=== PATIENT | female | born 1975 | race Caucasian/White ===

== ENCOUNTER 2025-06-07 19:49 | Emergency (ER) | payer BC, SELFPAY ==
[2025-06-07 19:51] VITALS: BP 139/84; PULSE 80; PULSE 81; RESP 16; TEMP 36.7; O2SAT 99; BMI 22.6
--- OUTSIDE RECORDS SUMMARY | 2025-06-07 20:31 | XMS_ITS | Encounter Summary ---
Author Organization [facility] Address [address] [place] [address] Phone Care Team Providers Care Installation Coordinator Name Role Phone Dionne Luu Primary Care Provider [phone] Encounter Details Date Type Department Care Team (Late st Contact Info) Description 12/17/2023 Telephone [facility] [address] [id number] Dionne Luu ARNP [address] [place], [place] [id number] Social History Tobacco Use Types Packs/Day Years Used Date Smoking Tobacco: Former Cigarettes Smokeless Tobacco: Never Alcohol Use Standard Drinks/Week Comments Not Currently 0 (1 standard drink = 0.6 oz pur e alcohol) Comments No Sex and Gender Information Value Date Recorded Sex Assigned at Not on file Legal Sex Female 3:59 PM PDT Gender Identity Not on file Sexual Orientation Not on file documented as of this encounter Miscellaneous Notes * Telephone Encounter - Dionne Luu ARNP - 12/20/2023 6:55 AM PST Order signed Thanks! Dionne * Telephone Encounter - Noe Self MA - 12/17/2023 3:16 PM PST My chart message regarding to redraw for TSH. Test for TSH pended to provider to sign. Michael Lewis documented in this encounter Plan of Treatment Upcoming Encounters Date Type Department Care Team (Late st Contact Info) Description 02/20/2026 8:00 AM PDT Office Visit [facility] [address] [place] [address] Dionne Luu ARNP [address] [place] [address] documented as of this encounter Results * TSH (12/20/2023 8:49 AM PST) TSH 0.96 0.45 - 5.10 uIU/ml [facility] Other 12/20/2023 8:49 AM PST 12/20/2023 12:35 PM PST Dionne LEE CHEMISTRY ORDERABLES Final R esult [facility] [address] [place] [address], documented in this encounter Visit Diagnoses Diagnosis Preventative health care- Primary Routine general medical examination at a health care facility documented in this encounter Care Teams Installation Coordinator Relationship Specialty Start Date End Date Dionne Luu ARNP [address] [place] [address] PCP - General 02/16/23 documented as of this encounter
--- OUTSIDE RECORDS SUMMARY | 2025-06-07 20:31 | XMS_ITS | Clinical Summary ---
Author Organization [facility] [facility] Address [address] [place] [address] Care Team Providers Care Autism Tutor Name Role Phone Betty Arias MD Primary Care Provider [phone] Allergies Active Allergy Reactions Criticality Noted Date Comments Oxycodone-Acetaminophen Hives 05/29/2016 Levonorgestrel-Ethinyl Estrad Rash 09/09/2015 I got lumps in my legs Bupropion Hcl Agitation/Anxiety 05/29/2016 I feel like I have pound of rocks on my head Medications venlafaxine (EFFEXOR XR) 150 MG Capsule SR 24 HR Take 300 mg by mouth at bedtime. Active aripiprazole (ABILIFY) 10 MG Tab Take 10 mg by mouth at bedtime. Active hydrocodone-acet aminophen (NORCO) 5-325 mg Tab Take 1 Tab by mouth every 6 hours as needed for pain. 40 Tab 0 06/04/2016 Active ibuprofen (MOTRIN) 600 MG Tab Take 1 Tab by mouth every 6 hours as needed for pain. 60 Tab 1 06/04/2016 Active hydrocodone-acet aminophen (NORCO) 5-325 mg Tab Take 1 Tablet by mouth every 6 hours as needed for pain. 15 Tablet 04/22/2024 Active naproxen (NAPROSYN) 500 MG Tab Take 1 Tablet by mouth twice daily with meals. 20 Tablet 04/22/2024 Active Family History Medical History Relation Name Comments Cancer Father melanoma Heart Mother Relation Name Status Comments Father Mother Social History Tobacco Use Types Packs/Day Years Used Date Smoking Tobacco: Former Cigarettes 0.1 14 0 01/04/2002 - 01/04/2016 Alcohol Use Standard Drinks/Week Comments No 0 (1 standard drink = 0.6 oz pur e alcohol) Comments No Sex and Gender Information Value Date Recorded Sex Assigned at Female 04/22/2024 2:16 PM PDT Legal Sex Female 1:39 AM PST Gender Identity Female 06/20/2020 12:46 AM PDT Sexual Orientation Not on file Last Filed Vital Signs Vital Sign Reading Time Taken Comments Blood Pressure 129/64 04/22/2024 3:24 PM PDT Pulse 99 04/22/2024 3:24 PM PDT Temperature 36.2 C (97.2 F) 04/22/2024 3:24 PM PDT Respiratory Rate 16 04/22/2024 3:24 PM PDT Oxygen Saturation 100% 04/22/2024 3:24 PM PDT Inhaled Oxygen Concentration - - Weight 53.5 kg (118 lb) 04/22/2024 2:13 PM PDT Height 149.2 cm (4' 10.75 ) 04/22/2024 2:13 PM P DT Body Mass Index 24.04 04/22/2024 2:13 PM PDT Plan of Treatment Health Maintenance Due Date Last Done Comments CT Colonography 1975 Colon Cancer Screening 1975 Colonoscopy 1975 FIT Yearly 1975 FIT-DNA 1975 FOBT 1975 Sigmoidoscopy 1975 Depression Screening 1975 SCRN: FOR HIV USPSTF ROUTINE (15-65 YEARS) 1990 [facility] SCRN: HIV-UNIVERSAL SCRN 1990 SCRN: FOR HEPATITIS C ROUTINE (18-79 Years) 1993 IMM: HEPATITIS B (1 of 3 - 19+ 3-dose series) 1994 Pap Smear 1996 Cervical Cancer Screening 2005 HPV + Pap Cotesting 2005 SCRN: FOR HYPERLIPIDEMIA (ADULT) 2015 IMM: DTAP/TDAP/TD (2 - Td or Tdap) 04/18/2024 04/18/2014 Breast Cancer Screening (Mammogram) 05/09/2024 05/09/2022 IMM: INFLUENZA (AGE > 6 MONTHS) (#1) 07/16/2025 08/02/2020, 08/02/2020, 10/10/2019, Additional history exists IMM: RSV ( patients and Patients AGE > 60 YEARS OLD) (1 - 1-dose 75+ series) 2050 SCRN: FOR BREAST CA Q1Y AGE 45-54 YEARS (DEFAULT) Discontinued 05/09/2022 IMM: HEPATITIS A Aged Out No longer e ligible based on patient's age to complete this topic IMM: MENINGOCOCCAL ACWY Aged Out No l onger eligible based on patient's age to complete this topic IMM: RSV (AGE < 20 MONTHS) Aged Out N o longer eligible based on patient's age to complete this topic Insurance [facility] [id number] [facility] [place] [id number] [id number] Advance Directives * Full Code (Latest Code Status on File) Date Activated Date Inactivated Comments 06/10/2016 11:34 AM 06/10/2016 7:20 PM Care Teams Autism Tutor Relationship Specialty Start Date End Date Betty Arias MD [address] [place] [address] PCP - General Family Medicine 09/07/15
--- OUTSIDE RECORDS SUMMARY | 2025-06-07 20:31 | XMS_ITS | Clinical Summary ---
Author Organization [facility] Address [address] [place] [address] Phone Care Team Providers Care Library Clerk Name Role Phone Dionne Luu Primary Care Provider [phone] Allergies Active Allergy Reactions Criticality Noted Date Comments Bupropion Hcl Anxiety,Adverse Drug Reaction Low 10/15/2015 I feel like I have pound of rocks on my head Crushing sensation to head Levonorgestrel-Ethiny l Estrad Rash High 09/09/2015 I got lumps in my legs Oxycodone-Acetaminoph en Hives,Rash High 11/01/2015 Medications venlafaxine XR 37.5 MG capsule (24 hour) Take 37.5 mg by mouth daily. 06/19/2021 Active atorvastatin (Lipitor) 10 MG tabIndications:H ypercholesterole loyd Take 1 tablet by mouth daily. 90 tablet 3 02/14/2025 Active Active Problems Problem Noted Date Diagnosed Date Hypercholesterolemia 06/22/2020 Other correction (current) drug therapy 9 Prediabetes 07/19/2018 Bipolar 1 disorder, mixed, full remission 2015 Generalized anxiety disorder 07/19/2014 Resolved Problems Problem Noted Date Diagnosed Date Resolved Date Visit for screening mammogram 06/20/2020 10/01/2022 Encounter for gynecological examination (general) (routine) without abnormal findings 06/20/2020 10/01/2022 Encounter for immunization 04/18/2014 1 12/01/2021 Immunizations Immunization Administration Dates Next Due COVID-19 Pfizer 30 mcg/0.3 m L Primary series: MONOVALENT VACCINE (Sands capped vial with sands-bordered label) 12+yrs 03/07/2021,02/14/2021 Hep B, unspecified 07/24/2005,10/20/2001 INFLUENZA (FLUCELVAX) QUAD P F (19+yrs) Non-state 08/02/2020,10/10/2019,08/31/2018 Influenza Unspecified (Historical) 08/02,10/10/2019,08/31/2018,2016,09/03/2016 Influenza Vaccine (Flu Clinic) 09/15/2017,2015,09/03/2015 TDAP Vaccine 05/26/2024,04/18/2014 Family History Medical History Relation Name Comments Bipolar Disorder Mother Heart Attack/CAD Mother age 49 ; was a smoker Bipolar Disorder Sister 1 Depression Sister 2 of suicide in 2018 Autism Son Relation Name Status Comments Mother Sister 1 Sister 2 Son Alive Social History Tobacco Use Types Packs/Day Years [...] on file Sexual Orientation Not on file Last Filed Vital Signs Vital Sign Reading Time Taken Comments Blood Pressure 114/74 02/14/2025 9:11 AM PDT Pulse 74 02/14/2025 9:11 AM PDT Temperature 36.3 C (97.4 F) 02/14/2025 9:11 AM PDT Respiratory Rate 16 02/14/2025 9:11 AM PDT Oxygen Saturation 98% 02/14/2025 9:11 AM PDT Inhaled Oxygen Concentration - - Weight 58.5 kg (129 lb) 02/14/2025 9:11 AM PDT Height 148 cm (4' 10.27 ) 02/14/2025 9:11 AM PDT Body Mass Index 26.71 02/14/2025 9:11 AM PDT Plan of Treatment Upcoming Encounters Date Type Department Care Team (Late st Contact Info) Description 02/20/2026 8:00 AM PDT Office Visit [facility] [address] [place] [address] [facility]ANT SENIOR MANAGER [address] [place] [address] Health Maintenance Due Date Last Done Comments CT Colonography 2020 FIT (Fecal Blood Test) 2020 FIT-DNA (Cologuard) 2020 Flex Sigmoidoscopy 2020 Influenza Vaccine (#1) 2025 , 08/02/2020, 10/10/2019, Additional history exists Colonoscopy 11/01/2025 11/01/2015 (Comp leted Outside of Organization) Colorectal Cancer Screening 11/01/2025 COVID-19 Vaccine (2023- season) 2026 03/07/2021, 02/14/2021 Postponed from 07/16/2024 (Declined) Depression Screening 02/14/2026 02/14/2025, 12/06/19 24 Hepatitis B Vaccines (3 of 3 - 19+ 3-dose series) 02/14/2026 07/24/2005, 10/20/2001 Postponed from 09/18/2005 (Declined) Mammogram 06/26/2026 06/26/2024, 04/16, 05/09/2022, Additional history exists Lipid Panel 02/14/2030 02/14/2025, 11/16, 10/02/2022, Additional history exists Pap Smear 02/14/2030 02/14/2025, 04/16 (Completed Outside of Organization) DTaP/Td/Tdap Vaccines (3 - Td or Tdap) 05/26/2034 05/26/2024, 04/18/2014 HIV Screening Completed 12/06/2023 Hepatitis C Screening Completed 12/06/2023 HPV Vaccines Aged Out No longer eligi ble based on patient's age to complete this topic Pneumococcal Vaccine Aged Out No long er eligible based on patient's age to complete this topic Procedures Procedure Name Priority Date/Time Associated Diagnosis Comments PAP SMEAR (THINPREP) Routine 02/14/2025 9:22 AM PDT Cervical cancer screening LIPID PROFILE WITH NON-HDL CHOLESTEROL, REFLEX LDL Routine 02/14/2025 9:22 AM PDT Preventative health care MG SCREENING BILATERAL MAMMOGRAM Routine 06/26/2024 8:00 AM PDT HEPATITIS C REFLEX TO HCV PCR Routine 12/06/2023 11:49 AM PST Need for hepatitis C screening test HIV 1&2 EIA AB SCRN W RFLX Routine 12/06/2023 11:49 AM PST Screening for HIV (human immunodeficiency virus) from Last 3 Months or Most Recently Relevant to Health Maintenance Results * LIPID PROFILE WITH NON-HDL CHOLESTEROL, REFLEX LDL (02/14/2025 9:22 AM PDT) CHOLESTEROL 173.0 0.0 - 200.0 mg/dL [facility] TRIGLYCERIDES 137.0 0.0 - 200.0 mg/dL [facility] HDL 56.0 >45.0 mg/dL [facility] LDL-C (calc) 90.0 0.0 - 130.0 mg/dL [facility] CHOL/HDL Ratio (calc) 3.1 0.0 - 5.0 Ratio [facility] Non HDL CHol (calc) 117.0 0.0 - 160.0 mg/dL [facility] VLDL (calc) 27.4 5.0 - 40.0 calc [facility] Other 02/14/2025 9:22 AM PDT 02/14/2025 10:48 AM PDT [facility] Final Result [facility] [address] [place] [address], * PAP SMEAR (THINPREP) (02/14/2025 9:22 AM PDT) Pap Result NILM [facility] High Risk HPV Negative [facility] Comment: CASE: [id number] PATIENT: Avis Kaplan SPECIMEN DESCRIPTION: ThinPrep Imaged Liquid Pap Test SPECIMEN SOURCE: Endocervical DATE OF LAST MENSTRUAL PERIOD: Not given PAP INTERPRETATION: NEGATIVE FOR INTRAEPITHELIAL LESION OR MALIGNANCY (NILM). SPECIMEN ADEQUACY: Satisfactory for evaluation. Endocervical/transformation zone component absent/insufficient. NOTES: ThinPrep specimen imaged successfully by automated warp dyeing tender device; field of view examination only. [ThinPrep [employer]aster [employer]o. [employer], [place], [place]] MOLECULAR RESULTS NEGATIVE for High Risk HPV. This test is FDA-approved for the Hilario Vicki 4800 platform using ThinPrep(TM) vials. This assay is a qualitative test that utilizes amplification of target DNA by Polymerase Chain Reaction (PCR) and nucleic acid hybridization for the detection of 14 HPV high risk types (16,18,31,33,35,39,45,51,52,56,58,59,66 and 68). This test is used for clinical purposes. This laboratory is regulated under the 1988 CLIA amendments as qualified to perform high-complexity clinical testing. Yuliana ASTORGA(ASCP). Electronically signed 02/15/2025 12:07 Performed at [facility], [address] [place] [address], CLIA#: [id number] [employer] Hemmer: Arias Valiente MD, PhD Tissue, cervical (Cervical) 02/14/2025 9:22 AM PDT 02/14/2025 10:48 AM PDT Narrative [facility] - 02/15/2025 5:29 PM PDT Do you want HPV 16,18 subtyping if HPV is POS? Yes [facility] ORDERABLE S Final Result [facility] [address] [place] [address], * MG SCREENING BILATERAL MAMMOGRAM (06/26/2024 8:00 AM PDT) Anatomical Region Laterality Modality Breast Bilateral Mammography Narrative 06/27/2024 9:23 PM PDT EXAM: MG SCREENING BILATERAL, 06/26/2024 8:18 AM HISTORY: 48 years Female. Screening (asymptomatic). TECHNIQUE: 3D digital tomosynthesis was performed and synthetic 2D technique was utilized. ANALYZED BY CAD: Yes. PRIOR STUDIES: Available prior imaging was reviewed. DENSITY: There are scattered areas of fibroglandular density. FINDINGS: No suspicious finding in either breast. IMPRESSION: 1. No mammographic evidence of malignancy in either breast. Assessment: ACR BI-RADS Category 1 - Negative Recommendation: 1: Routine screening mammogram of both breasts in one year. The [employer] recommends annual screening mammography beginning at age 40. There are several other recommended screening guidelines. Discuss with your healthcare provider regarding the most appropriate screening regimen for you. We thank you for trusting us with your care. Per National MQSA guidelines, a breast imaging result letter will be provided to your patient. The patient has been added into the reminder system with a targeted date for her next screening mammogram. TRA strives for timely and accurate reports. * Providers: Please call for any questions/concerns. * Patient: Please discuss clinical significance with your provider. Reported: Lyndsey Canales MD 27 Jun 2024 21:18 Electronically Signed: Lyndsey Canales MD 27 Jun 2024 21:20 Procedure Note Lyndsey Canales - 06/27/2024 EXAM: MG SCREENING BILATERAL, 06/26/2024 8:18 AM HISTORY: 48 years Female. Screening (asymptomatic). TECHNIQUE: 3D digital tomosynthesis was performed and synthetic 2Dtechnique was utilized. ANALYZED BY CAD: Yes. PRIOR STUDIES: Available prior imaging was reviewed. DENSITY: There are scattered areas of fibroglandular density. FINDINGS: No suspicious finding in either breast. IMPRESSION: 1. No mammographic evidence of malignancy in either breast. Assessment: ACR BI-RADS Category 1 - Negative Recommendation: 1: Routine screening mammogram of both breasts in one year. The [employer] recommends annual screening mammographybeginning at age 40. There are several other recommended screeningguidelines. Discuss with your healthcare provider regarding the mostappropriate screening regimen for you. We thank you for trusting us with your care. Per National MQSA guidelines, a breast imaging result letter will beprovided to your patient. The patient has been added into the reminder system with a targeted datefor her next screening mammogram. TRA strives for timely and accurate reports. * Providers: Please call for any questions/concerns. * Patient: Please discuss clinical significance with your provider. Reported: Lyndsey Canales MD 27 Jun 2024 21:18 Electronically Signed: Lyndsey Canales MD 27 Jun 2024 21:20 us [facility] - MAMMOGRAM EKTA Marlin l Result * HEPATITIS C REFLEX TO HCV PCR (12/06/2023 11:49 AM PST) HEPATITIS C ANTIBODY NON-REACTI VE NON-REACT IRVIN [facility] Comment: HCV antibody was non-reactive. There is no laboratory evidence of HCV infection. In most cases, no further action is required. However, if recent HCV exposure is suspected, a test for HCV RNA (test code 60751) is suggested. For additional information please refer to http://education.Sabesim/faq/HWD51j6 (This link is being provided for informational/ educational purposes only.) Other 12/06/2023 11:4 9 AM PST 12/06/2023 1:48 PM PST Narrative [facility] - 12/07/2023 2:26 PM PST [facility] Testing performed at: , [facility], [address] [place] [address], [address], [place], [address], Standpipe Tender: Sujit Bhatia [facility] Collection Date/Time: [id number] [facility] Results Received Date/Time: [id number] [facility] Reported Date/Time: [id number] us Dionne Lockhart [facility] CHEMISTRY ORDERABLES Final R esult [facility] [address] [place] [address], * HIV 1&2 EIA AB SCRN W RFLX (12/06/2023 11:49 AM PST) HIV AG/AB, 4TH GEN NON-REACT IRVIN NON-REACT IRVIN [facility] Comment: HIV-1 antigen and HIV-1/HIV-2 antibodies were not detected. There is no laboratory evidence of HIV infection. PLEASE NOTE: This information has been disclosed to you from records whose confidentiality may be protected by state law. If your state requires such protection, then the state law prohibits you from making any further disclosure of the information without the specific written consent of the person to whom it pertains, or as otherwise permitted by law. A general authorization for the release of medical or other information is NOT sufficient for this purpose. For additional information please refer to http://education.Sabesim/faq/CEC886 (This link is being provided for informational/ educational purposes only.) The performance of this assay has not been clinically validated in patients less than 2 years old. Other 12/06/2023 11:4 9 AM [facility] 12/06/2023 1:48 PM PST Narrative [facility] - 12/07/2023 2:26 PM [facility] Testing performed at: , [facility], [address] [place] [address] [address], [place], [address], Standpipe Tender: Sujit Bhatia [facility] Collection Date/Time: [id number] [facility] Results Received Date/Time: [id number] [facility] Reported Date/Time: [id number] Dionne Lockhart [facility] SEND OUTS Final Result [facility] [address] [place] [address], from Last 3 Months or Most Recently Relevant to Health Maintenance Insurance [employer] Care Teams Library Clerk Relationship Specialty Start Date End Date Dionne Luu ARNP [address] [address] PCP - General 02/16/23
--- OUTSIDE RECORDS SUMMARY | 2025-06-07 20:31 | XMS_ITS | Clinical Summary ---
Author Organization [facility] Address [address] [place] [address] Care Team Providers Care Medical Aides Teacher Name Role Phone Betty Arias MD Primary Care Provider Unavaila ble Allergies Active Allergy Reactions Criticality Noted Date Comments Oxycodone-Acetaminoph en Rash Medium 11/01/2015 Levonorg-Eth Estrad Triphasic Other (See Comments) 10/15/2015 Erythema nodosum Bupropion Hcl Other (See Comments) 10/15/2015 Crushing sensation to head Medications lithium 300 mg tablet Take 300 mg by mouth 2 (two) times a day. Active ferrous sulfate 325 (65 FE) MG tablet Take 325 mg by mouth daily with breakfast. Active LORazepam (ATIVAN) 0.5 MG tablet Take 0.5 mg by mouth once nightly as needed for anxiety. Active risperiDONE (RISPERDAL) 0.5 MG tablet Take 0.5 mg by mouth 2 (two) times a day. Active ALPRAZolam (XANAX) 0.25 MG tablet 06/07/2015 Active Social History Tobacco Use Types Packs/Day Years Used Date Smoking Tobacco: Former Smokeless Tobacco: Never Comments:qyut 13 years ago Alcohol Use Standard Drinks/Week Comments Yes 0 (1 standard drink = 0.6 oz pur e alcohol) wine once month Comments No Sex and Gender Information Value Date Recorded Sex Assigned at Not on file Legal Sex Female 11:44 AM PDT Gender Identity Not on file Sexual Orientation Not on file Last Filed Vital Signs Vital Sign Reading Time Taken Comments Blood Pressure 128/69 11/01/2015 9:14 AM PST Pulse 90 11/01/2015 9:14 AM PST Temperature 36.6 C (97.9 F) 11/01/2015 8:15 AM PST Respiratory Rate 16 11/01/2015 9:14 AM PST Oxygen Saturation 100% 11/01/2015 9:14 AM PST Inhaled Oxygen Concentration - - Weight 47.2 kg (104 lb) 11/01/2015 8:15 AM PST Height 149.9 cm (4' 11 ) 11/01/2015 8:15 AM PST Body Mass Index 21.01 11/01/2015 8:15 AM PST Plan of Treatment Not on file Insurance [facility] [employer] Care Teams Medical Aides Teacher Relationship Specialty Start Date End Date Betty Arias MD PCP - General Family Medicine 09/03/15
--- OUTSIDE RECORDS SUMMARY | 2025-06-07 20:31 | XMS_ITS | Encounter Summary ---
Author Organization [facility] Address [address] [place] [address] Care Team Providers Care Applied Technologist Name Role Phone Betty Arias MD Primary Care Provider Unavaila ble Reason for Referral * Surgical (Routine) - Closed Specialty Diagnoses / Procedures Referred By John jesus Referred To Contact Gastrointestinal Surgery Diagnoses Iron deficiency anemia Procedures Case Request GI/Pain: COLONOSCOPY AK COLONOSCOPY FLX DX W/COLLJ SPEC WHEN PFRMD Betty Arias MD [address], [address] [address] Phone: tel: fax: Referral ID Status Reason Start Date Expiration Date Visits Re quested Visits Authorized [id number] Closed 09/19/2015 09/19/2016 1 1 Encounter Details Date Type Department Care Team (Latest Contact Info) Description 09/19/2015 Order Movie Operator [address] [address] Betty Arias MD Iron deficiency anemia (Primary Dx) Social History Tobacco Use Types Packs/Day Years Used Date Smoking Tobacco: Never Assessed Comments Unknown Sex and Gender Information Value Date Recorded Sex Assigned at Not on file Legal Sex Female 11:44 AM PDT Gender Identity Not on file Sexual Orientation Not on file documented as of this encounter Plan of Treatment Not on file documented as of this encounter Visit Diagnoses Diagnosis Iron deficiency anemia- Primary Unspecified iron deficiency anemia documented in this encounter Care Teams Applied Technologist Relationship Specialty Start Date End Date Betty Arias MD PCP - General Family Medicine 09/03/15 documented as of this encounter
--- OUTSIDE RECORDS SUMMARY | 2025-06-07 20:31 | XMS_ITS | Encounter Summary ---
Author Organization [facility] Address [address] [place] [address] Phone Care Team Providers Care Cloth Folder Machine Name Role Phone Betty Arias MD Primary Care Provider Unavail able Dionne Luu Primary Care Provider [phone] Encounter Details Date Type Department Care Team (Late st Contact Info) Description 04/11/2022 Orders Only [facility] [address] [place] [address] Julio Hernandez, PABlancaC [address] [place] [address] Sore throat Social History Tobacco Use Types Packs/Day Years [...] as of this encounter Plan of Treatment Upcoming Encounters Date Type Department Care Team (Late st Contact Info) Description 02/20/2026 8:00 AM PDT Office Visit [facility] [address] [place], [place] [id number] Dionne Luu ARNP [address] [place], [place] [id number] documented as of this encounter Procedures Procedure Name Priority Date/Time Associated Diagnosis Comments COVID 19, FLU A&B, RSV PCR COMBO Routine 04/11/2022 8:55 AM PDT Sore throat documented in this encounter Results * (ABNORMAL) COVID 19, FLU A&B, RSV PCR COMBO (04/11/2022 8:55 AM PDT) Covid 19 PCR ([facility]) POSITIVE(A) NEGATIVE [facility] Influenzae A PCR Negative Negative [facility] Influenzae B PCR Negative Negative [facility] RSV PCR Negative Negative [facility] Other 04/11/2022 8:55 AM PDT 04/11/2022 8:56 AM PDT us Julio Hernandez PA-C POINT OF CARE TESTING Final R esult [facility] [address] [place] [address], documented in this encounter Visit Diagnoses Diagnosis Sore throat Acute pharyngitis documented in this encounter Care Teams Cloth Folder Machine Relationship Specialty Start Date End Date Betty Arias MD PCP - General Family Medicine 11/15/1909 02/15/23 Dionne Luu ARNP [address] [place] [address] PCP - General 02/16/23 documented as of this encounter
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
--- OUTSIDE RECORDS SUMMARY | 2025-06-07 20:31 | XMS_ITS | Encounter Summary ---
Author Organization [facility] Address [address] [place] [address] Care Team Providers Care Needle Process Felt Goods Supervisor Name Role Phone Betty Arias MD Primary Care Provider [phone] Encounter Details Date Type Department Care Team (Late st Contact Info) Description 02/18/2006 [facility] CONVERSION Provider, Derrick Crane Social History Tobacco Use Types Packs/Day Years Used Date Smoking Tobacco: Never Assessed Comments Unknown Sex and Gender Information Value Date Recorded Sex Assigned at Female 04/22/2024 2:16 PM PDT Legal Sex Female 1:39 AM PST Gender Identity Female 06/20/2020 12:46 AM PDT Sexual Orientation Not on file documented as of this encounter H&P Notes * Harshal Ortega - 02/18/2006 11:00 AM PDT Historical document, authenticated elsewhere. [facility] Preop History and Physical Signed Report Patient Name: DORINA KAPLAN Female Date: 1975 M.R. Number: [id number] Job Number: [id number] Admit/Service Date: 02/18/06 Status: DIS IN DATE OF ADMISSION: HISTORY OF PRESENT ILLNESS: This is a 30-year-old white female, 3, para 2, at approximately 39 weeks estimated gestational age, who was admitted to labor and delivery complaining of regular uterine contractions and spontaneous rupture of membranes. She was scheduled for elective repeat section on February 22, but states that these initial problems have occurred today and requires delivery. The nurses confirmed regular uterine contractions every 5 minutes, of increasing or escalating intensity, and the patient was noted to be both fern and Nitrazine positive. Because of this, we will proceed with section at this time. PAST MEDICAL HISTORY: Significant for a previous section for CPD. She is Rh-negative. She does have a history of admission for PID in 1991 and a cryotherapy for mild cervical dysplasia in 2004. She had 1 vaginal delivery at 41 weeks. The 2nd one was delivered at 40+ weeks by section for CPD. No other significant medical problems. SOCIAL HISTORY: No cigarettes, alcohol, or drugs. PHYSICAL EXAMINATION: VITAL SIGNS: Height 4 feet 11 inches, weight approximately 130 pounds. HEENT: Within normal limits. NECK: Supple. No thyromegaly. CHEST: Clear to auscultation. HEART: Regular rate and rhythm. ABDOMEN: Normal gravid abdomen. Bowel sounds are present. No hepatosplenomegaly. Fundal height was 38 cm. heart tones were present. EXTREMITIES: 1+ edema. NEUROLOGIC: 2+ DTRs. PELVIC: Cervix long, thick, and closed. IMPRESSION: 1. Intrauterine at term. 2. Prior section. 3. Spontaneous labor and spontaneous rupture of membranes. PLAN: Repeat low-transverse section. DICTATED BY: Caryn Rowley/sariah d: 02/18/2006 11:22:00 t: 02/18/2006 11:30:20 cc: Betty Arias M.D. <Electronically signed by HARSHAL ORTEGA MD> Electronic Authentication Status: Signed 03/08/06 0834 documented in this encounter Miscellaneous Notes * Discharge/Interim Summary - Quinn Bee - 02/18/2006 11:00 AM PDT Historical document, authenticated elsewhere. [facility] Discharge Summary Signed Report Patient Name: DORINA KAPLAN Female Date: 1975 Tita Number: [id number] Job Number: [id number] Admit/Service Date: 02/18/06 Status: DIS IN DATE OF ADMISSION: 02/18/2006 DATE OF DISCHARGE: 02/20/2006 ADMISSION DIAGNOSES: 1. Intrauterine at term. 2. Prior . 3. Desires repeat spontaneous labor and spontaneous rupture of membranes. DISCHARGE DIAGNOSES: 1. Intrauterine at term. 2. Prior . 3. Desires repeat spontaneous labor and spontaneous rupture of membranes. PROCEDURE PERFORMED: Repeat low transverse . HISTORY OF PRESENT ILLNESS: Patient is a 30-year-old G3, P2 female who admitted to the hospital for a spontaneous rupture of membranes. HOSPITAL COURSE: Patient was taken to the operating room, where she had an uneventful repeat low transverse . She had a viable female infant in vertex position, weight of 7 pounds 11 ounces. Postoperatively, the patient did well. She remained afebrile throughout her entire hospital course with all vital signs stable and normal. She had diminishing lochia. Had flatus prior to discharge. Was tolerating diet, voiding, and ambulating without any problems. Incision appeared clean, dry, and intact with no evidence of erythema. Her postoperative hematocrit was 26.8% and asymptomatic. DISCHARGE INSTRUCTIONS: She was discharged to home with ibuprofen and oxycodone. She was given return instructions to come back and see Dr. Ortega in 2 weeks and boni removed and Steri-Strips applied prior to discharge. DICTATED BY: Caryn Kumar/DONALDO d: 02/20/2006 10:19 t: 02/20/2006 16:44 <Electronically signed by QUINN BEE MD> Electronic Authentication Status: Signed 02/26/06 1113 * Operative Report/Procedure - Harshal Ortega - 02/18/2006 11:00 AM PDT Historical document, authenticated elsewhere. [facility] Operative/Procedure Report Signed Report Patient Name: DORINA KAPLAN Female Date: 1975 Stewart.Jessica Number: [id number] Job Number: [id number] Admit/Service Date: 02/18/06 Status: DIS IN DATE OF PROCEDURE: 02/18/2006 SURGEON: Harshal Ortega M.D. EAR NOSE AND THROAT SPECIALIST: Windy Acosta M.D. ANESTHESIA: Spinal, Dr. Rivera. PREOPERATIVE DIAGNOSES: 1. Intrauterine at term. 2. Prior section. 3. Spontaneous rupture of membranes. PROCEDURE: Repeat low transverse section. FINDINGS: Living female , Apgars 9 and 9. Normal gravid uterus, tubes and ovaries. ESTIMATED BLOOD LOSS: Minimal. DRAINS: Saavedra. PROCEDURE IN DETAIL: After appropriate consents, the patient was taken to the operating room and given spinal anesthesia, then prepped and draped in the usual sterile fashion. A Pfannenstiel incision was made, excising the previous Pfannenstiel scar, carried down sharply using knife electrocautery. The fascia was divided using the Palafox scissors. Rectus muscle was split in the midline. Peritoneum was tented and entered. A bladder blade was used to protect the bladder. The bladder flap was taken down sharply with the Metzenbaum scissors. With the bladder blade to protect the bladder, a transverse incision was made in the lower uterine segment and extended upwardly and laterally using the finger-fracture method. The infant was delivered atraumatically from the occiput anterior position, cord doubly clamped and cut, and the infant handed to the singeing torch operator. Cord blood was obtained due to maternal Rh-negative status. Then the placenta was manually extracted, uterus exteriorized, wiped clean of clots and debris, and closed in 1 layer using running interlocking 0 chromic suture. When hemostasis was noted to be intact, the uterus was returned to the peritoneal cavity, wiped clean of clots and debris, the subfascial area inspected and made dry. Rectus muscles were reapproximated in the midline using interrupted U-stitches of 0 chromic suture. The fascia was closed using a running 0 Vicryl suture. Irrigation hemostasis checked. The subcutaneous was closed using a running 3-0 Vicryl suture. The skin was closed with boni. Sterile dressing applied. The patient was taken to the recovery room in stable condition. DICTATED BY: Harshal Ortega M.D. JDHRUV/héctor d: 02/18/2006 12:51:00 t: 02/18/2006 13:10:49 cc: Caryn Coleman M.D. <Electronically signed by HARSHAL ORTEGA MD> Electronic Authentication Status: Signed 03/08/06 0834 documented in this encounter Plan of Treatment Not on file documented as of this encounter Visit Diagnoses Not on filedocumented in this encounter Care Teams Needle Process Felt Goods Supervisor Relationship Specialty Start Date End Date Betty Arias MD [address] [facility] [place] [address] PCP - General Family Medicine 09/07/15 documented as of this encounter
--- OUTSIDE RECORDS SUMMARY | 2025-06-07 20:31 | XMS_ITS | Referral Summary ---
Author Organization [employer] [facility] Address [address] [place] [address] Care Team Providers Care Supervisor Machine Workers Name Role Phone Betty Arias MD Primary [...] Plan of Treatment Not on file Insurance [facility] [employer] Care Teams Supervisor Machine Workers Relationship Specialty Start Date End Date Betty Arias MD PCP - General Family Medicine 09/03/15
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
[2025-06-07] MEDS: HYDROCODONE/APAP 5/325 MG TABLET 1 TAB PO (20:56)
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
[2025-06-07 22:45] VITALS: BP 138/78; PULSE 81; RESP 16; TEMP 36.7; O2SAT 99
--- NOTE | 2025-06-07 22:46 | PC.NURSE ---
walking boot applied to patient, size small. form filled out and pt ambulatory on discharge.
== END 2025-06-07 22:47 | disposition home or self-care (01) ==
PROVIDERS: Emergency Provider Student in an Organized Health Care Education/Training Program
DX: M79.672 Pain in left foot (principal); S82.102A Unspecified fracture of upper end of left tibia, initial encounter for closed fracture; V58.2XXA Person on outside of pick-up truck or van injured in noncollision transport accident in nontraffic accident, initial encounter
CPT/HCPCS: 73590; 73610; 73630; 99284